=== PATIENT | male | born 1990 | race African-American/Black ===

== ENCOUNTER 2016-08-06 15:23 | Emergency (ER) | payer OTHER ==
[~2016-08-06] VITALS: Ht 188 cm; Wt 90.0 kg
[~2016-08-06 15:23] MED LIST: EXTR500C PO; IBUP800T23 PO
[2016-08-06 15:25] VITALS: BP 141/83; PULSE 73; RESP 14; TEMP 98.2; O2SAT 98
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
[2016-08-06] MEDS ORDERED: ORPHENADRINE INJ 60 MG/2 ML AMP IM ONE (15:45)
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
[2016-08-06] MEDS ORDERED: IBUP800T23 PO (16:43)
[2016-08-06] MEDS ORDERED: CYCL5TAB PO (16:43)
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
== END 2016-08-06 17:15 | disposition home or self-care (01) ==
LOC: NEPK 15:23
DX: M79.642 Pain in left hand (principal); M25.562 Pain in left knee; S80.02XA Contusion of left knee, initial encounter; V09.9XXA Pedestrian injured in unspecified transport accident, initial encounter; Y93.55 Activity, bike riding; Y92.410 Unspecified street and highway as the place of occurrence of the external cause
CPT/HCPCS: 73110; 73130; 96372; 99284; J2360

== ENCOUNTER 2016-12-14 19:53 | Emergency (ER) | payer SELFPAY ==
[~2016-12-14] VITALS: Ht 188 cm; Wt 105.0 kg
[~2016-12-14 19:53] MED LIST changes: +CYCL5TAB PO; -EXTR500C PO
[2016-12-14 19:58] VITALS: BP 125/88; PULSE 99; RESP 18; TEMP 98.2; O2SAT 98
[2016-12-14] MEDS ORDERED: CETI-1 PO (20:14)
[2016-12-14] MEDS: LIDOCAINE 1%/EPINEPHrine 1:100,000 SOLN 20 ML VIAL INFIL ONE ×2 (20:15→20:31)
[2016-12-14] MEDS ORDERED: AMOXICILLIN/CLAVULANATE K 875 MG TAB PO ONE (20:15)
[2016-12-14] MEDS ORDERED: TETANUS/DIPHTHERIA TOXOID ADULT 0.5 ML VIAL IM ONE (20:15)
[2016-12-14] MEDS ORDERED: oxyCODONE/ACETAMINOPHEN 5 MG/325 MG TAB PO ONE ×2 (20:15→23:30)
[2016-12-14] MEDS ORDERED: LIDOCAINE HCL 1% PF 30 ML VIAL ONE (20:26)
[2016-12-14] MEDS ORDERED: RABIES VACCINE CHICK EMB INJ 2.5 UNITS/ML SYR IM ONE (20:45)
[2016-12-14] MEDS ORDERED: RABIES IMMUNE GLOBULIN INJ 1,500 UNITS/10 ML VIAL IM ONE (20:45)
[2016-12-14] MEDS ORDERED: TRAM50TA PO (20:55)
[2016-12-14] MEDS ORDERED: AUGM875T3 PO (20:55)
--- NOTE | 2016-12-14 20:58 | PD ---
HPI Chief Complaint: Bite or Sting Time Seen by Provider: 20:05 Travel History International Travel<30 days: No Contact w/Intl Traveler<30days: No Traveled to known affect area: No History of Present Illness HPI Patient is a 26-year-old male presenting to the emergency department evaluation of a dog bite to his left lower leg. Patient status of the dog is unknown, the dog's owners fled with the dog. Patient states his pain is a 10 out of 10 and describes as aching and throbbing. He is uncertain when his last tetanus vaccine was administered. [facility] Past Medical History Medical History: Denies Significant Hx Diminished Hearing: No Immunizations Current: Yes Tetanus Vaccination: Unknown Past Surgical History Surgical History: No Previous Surgery Social History Alcohol Use: Yes (OCC) Tobacco Use: No Substance Use: No Allergies-Medications (Allergen,Severity, Reaction): Coded Allergies: No Known Allergies (Unverified , 12/14/16) Reported Meds & Prescriptions Reported Meds & Active Scripts Active Tramadol (Tramadol HCl) 50 Mg Tab 50 Mg PO Q6H PRN Augmentin (Amoxicillin-Clavulanate) 875-125 Mg Tab 1 Tab PO BID Reported Zyrtec (Cetirizine HCl) 10 Mg Tablet 1 Tab PO DAILY Review of Systems Except as stated in HPI: all other systems reviewed are Neg Musculoskeletal: Positive: Pain Skin: Positive Other (laceration, puncture wound) Physical Exam Narrative GENERAL: Well-developed, well-nourished, alert male. Appears uncomfortable, in no acute distress. SKIN: Warm and dry. 2 cm superficial laceration to the anterior aspect of the left lower leg proximal to the ankle. 2+ dorsalis pedal pulse. HEAD: Normocephalic. EYES: No scleral icterus. No injection or drainage. NECK: Supple, trachea midline. No JVD or lymphadenopathy. CARDIOVASCULAR: Regular rate and rhythm without murmurs, gallops, or rubs. RESPIRATORY: Breath sounds equal bilaterally. No accessory muscle use. GASTROINTESTINAL: Abdomen soft, non-tender, nondistended. MUSCULOSKELETAL: No cyanosis, or edema. 5/5 muscle strength in bilateral lower extremities. BACK: Nontender without obvious deformity. No CVA tenderness. Data Data Last Documented VS Vital Signs Date Time Temp Pulse Resp B/P (MAP) Pulse Ox O2 Delivery O2 Flow Rate FiO2 12/14/16 20:05 94 18 12/14/16 19:58 98.2 125/88 (100) 98 Orders Orders Lidocai-Epi 1%-1:100,000 Inj (Xylocaine- (12/14/16 20:15) Tetanus/Diphtheria Tox Adult (Tetanus/Di (12/14/16 20:15) Amoxicil-Clavulanate (Augmentin) (12/14/16 20:15) Oxycodone-Acetamin 5-325 Mg (Percocet (12/14/16 20:15) Lidocaine Pf 1% Inj (Xylocaine-Mpf 1% In (12/14/16 20:26) Rabies Immune Globulin Inj (Hyperrab S/D (12/14/16 20:45) Rabies Vaccine Human Cell Inj (Imovax In (12/14/16 21:15) Oxycodone-Acetamin 5-325 Mg (Percocet (12/14/16 23:30) MDM Medical Decision Making Medical Screen Exam Complete: Yes Emergency Medical Condition: Yes Interpretation(s) Vital Signs Date Time Temp Pulse Resp B/P (MAP) Pulse Ox O2 Delivery O2 Flow Rate FiO2 12/14/16 20:05 94 18 12/14/16 19:58 98.2 99 18 125/88 (100) 98 Differential Diagnosis Puncture wound versus laceration versus exposure to rabies versus need for tetanus vaccination versus other Narrative Course Patient is a 26-year-old male presenting to emergency for evaluation of a dog bite. Patient's vital signs are stable, he appears uncomfortable. Pain medication ordered. Patient is neurovascularly intact. Tetanus vaccine is updated. Please see procedure report for laceration repair. Dog was unable to be located, the police told the nurse that they would not be able to provide patient with a report until tomorrow. At this time patient will be vaccinated for rabies. He was given first dose of Augmentin in the emergency department as well. Patient was given wound instructions, he was advised to return to emergency department immediately for any new or worsening symptoms. He was advised to complete full course of antibiotics as prescribed. He was further educated that he will need complete series of rabies vaccinations at the health Department and if the health department was unavailable that he can return to the emergency department on day 7 and 821. Patient verbalized understanding of instructions. Patient stable for discharge. Diagnosis Primary Impression: Dog bite Qualified Codes: W54.0XXA - Bitten by dog, initial encounter Additional Impressions: Laceration of leg Qualified Codes: S81.812A - Laceration without foreign body, left lower leg, initial encounter Rabies, need for prophylactic vaccination against Tetanus toxoid vaccination administered at current visit Referrals: [facility]. Patient Instructions: Animal Bite (ED), Care For Your Stitches (ED), General Instructions, Rabies (ED), Rabies Vaccine (By injection) Additional Instructions: You will need to complete rabies series at the health Department on day 7 on and day 21 which is on 01/04/17. You can also return to the Emergency Department if unable to make it to the health Department or if the health department is closed Complete full course of antibiotics as prescribed Stitches will need to be removed in 10-14 days this could also be done department or with a primary doctor Return to emergency department immediately for any new or worsening symptoms Med/Other Pt SpecificInfo: Prescription(s) given Scripts Tramadol (Tramadol) 50 Mg Tab 50 MG PO Q6H Y for PAIN, #10 TAB 0 Refills Prov: Mary Mai 12/14/16 Amoxicillin-Clavulanate (Augmentin) 875-125 Mg Tab 1 TAB PO BID for Infection, #20 TAB 0 Refills Prov: Mary Mai 12/14/16 Disposition: 01 DISCHARGE HOME Condition: Stable Mary Mai Dec 14, 2016 20:58
[2016-12-14] MEDS ORDERED: RABIES VACCINE HUMAN DIPL CELL 2.5 UNITS/ML SYRINGE IM ONE (21:15)
== END 2016-12-14 23:54 | disposition home or self-care (01) ==
LOC: NEPD 19:53
DX: S81.812A Laceration without foreign body, left lower leg, initial encounter (principal); S81.852A Open bite, left lower leg, initial encounter; W54.0XXA Bitten by dog, initial encounter; Z23 Encounter for immunization
CPT/HCPCS: 90375; 90471; 90472; 90675; 90714; 96372